=== PATIENT | male | born 1995 | race Caucasian/White ===

== ENCOUNTER 2017-11-07 16:55 | Emergency (ER) | payer BC, SELFPAY ==
[2017-11-07 16:56] VITALS: BP 116/75; PULSE 99; RESP 16; TEMP 36.9; O2SAT 99; BMI 17.0
--- NOTE | 2017-11-07 17:39 | ED.DCSUM_ITS ---
- ER Visit Summary Date of Service: 11/07/17 Chief Complaint: Rash History of Present Illness: The patient is a 22 M with a rash for about 5 days. It started when he had a campfire. He was carrying wood that was covered in leaves and thinks he may have been exposed to poison elenita. He has no fever or systemic symptoms. Exam: Normal vitals. Afebrile. Unremarkable exam except for some erythema and edema to his face diffusely. Airway intact. Nose unremarkable. He has some erythema and excoriations to his body and extremities. No sign of overlying warmth, drainage, bleeding, or pus. Mucous membranes normal. Test Results: None indicated Emergency Department Course and Treatment: Suspect this is a poison elenita rash and will put him on a prednisone taper. Treatment Plan: Above Disposition: Discharge Impression: 1. Poison elenita rash This note was generated with [employer] dictation software. It may contain incorrect words, spelling, and punctuation that were not noted in review of the chart prior to signing ED Disposition - Plan for ED Patient: Chief Complaint: Rash Referrals: Care Physician,No Primary [Primary Care Provider] -
--- NOTE | 2017-11-07 17:39 | ED.DEP ---
ED Disposition - Plan for ED Patient: Chief Complaint: Rash Instructions: ED Dermatitis Poison Cort[place] Prescriptions: Prednisone 10 mg PO DAILY #50 tab Additional Instructions: follow up with primary care or return if worse
[2017-11-07 17:49] VITALS: RESP 18
== END 2017-11-07 18:06 | disposition home or self-care (01) ==
PROVIDERS: Emergency Provider Emergency Medicine
DX: L23.7 Allergic contact dermatitis due to plants, except food (principal)
CPT/HCPCS: 99282

== ENCOUNTER 2018-02-12 23:19 | Emergency (ER) | payer BC, SELFPAY ==
[2018-02-12 23:20] VITALS: BP 125/75; PULSE 98; RESP 17; TEMP 37.3; O2SAT 94; BMI 16.9
--- NOTE | 2018-02-13 00:07 | ED.VISSUMM ---
- ER Visit Summary Date of Service: 02/13/18 Chief Complaint: Right groin pain and cough History of Present Illness: The patient is a 22 M no significant past medical history. Patient states she has had them and right groin pain for approximately a week. Denies any dysuria. No discharge. Pain is worse when he coughs or lifts heavy objects. He has never had any abdominal surgeries. He is also complaining of Nonproductive cough. No shortness of breath. No hemoptysis. Physical Examination: Well appearing young male. Vital signs are stable afebrile. No acute distress. H EENT exam unremarkable. Neck nontender no lymphadenopathy. Lungs clear to auscultation bilaterally. Heart regular rhythm no murmur. Abdomen soft nontender. External exam his testicles are nontender nonswollen. Normal positioning. No signs of torsion. No orchitis or epididymitis. Penis unremarkable. Circumcised. No discharge. No lesions. No inguinal lymphadenopathy. He does have a right small sliding inguinal hernia on the right. Left is unremarkable. The hernia on the right reduces spontaneously. There is no incarceration or strangulation. Moving all 4 extremities. Neurovascularly intact. Back nontender. Neurologic exam normal. Test Results: None Emergency Department Course and Treatment: Patient's cough is secondary to viral URI. His right groin pain is secondary to an inguinal hernia. Treatment Plan: Motrin for pain. Follow-up with a general surgeon. Disposition: Discharge Impression: Acute right groin inguinal hernia Viral URI This note was generated with [employer] dictation software. It may contain incorrect words, spelling, and punctuation that were not noted in review of the chart prior to signing ED Disposition - Plan for ED Patient: Chief Complaint: Male Pain/Injury Referrals: Care Physician,No Primary [Primary Care Provider] -
--- NOTE | 2018-02-13 00:11 | ED.DEP ---
ED Disposition - Plan for ED Patient: Disposition: Home or Assisted Living Chief Complaint: Male Pain/Injury Instructions: ED Hernia Inguinal, ED URI Viral Referrals: Frieda Arteaga MD [STAFF PHYSICIAN] - 1-2 Weeks Additional Instructions: Motrin for pain. Call and follow-up with Dr. Arteaga for further evaluation of your right groin hernia.
[2018-02-13 00:20] VITALS: BP 132/75; PULSE 88; RESP 17; O2SAT 95
== END 2018-02-13 00:21 | disposition home or self-care (01) ==
PROVIDERS: Emergency Provider Emergency Medicine
DX: K40.90 Unilateral inguinal hernia, without obstruction or gangrene, not specified as recurrent (principal); J06.9 Acute upper respiratory infection, unspecified; Z72.0 Tobacco use
CPT/HCPCS: 99282

== ENCOUNTER 2019-10-07 14:54 | Emergency (ER) | payer SELFPAY ==
[2019-10-07 14:54] VITALS: BP 121/77; PULSE 97; RESP 16; TEMP 36.9; O2SAT 98; BMI 17.8
[2019-10-07] MEDS: Ondansetron 4 MG/2 ML Vial IV (15:22)
[2019-10-07] MEDS: Ketorolac 30 MG/ML Syringe IV (15:22)
[2019-10-07] MEDS: 0.9% Normal Saline 1,000 ML 1000 ML IV (15:22)
[2019-10-07 15:31] LABS: Absolute Lymphocyte Count 1.24 X10^3/uL (0.83-4.51); Absolute Neutrophil Count 10.9 X10^3/uL (2.0-7.7); Basophil# 0.02 X10^3/uL; Basophil% 0.2 % (0-1); Eosinophil# 0.02 X10^3/uL; Eosinophils% 0.2 % (0-5); Hematocrit 47.2 % (40-54); Hemoglobin 16.5 g/dL (13.0-16.5); Lymphocyte # 1.24 X10^3/ul (4.0); Lymphocyte % 9.6 % (19-41); Mean Corpuscular Hgb 29.4 pg (27.0-32.0); Mean Corpuscular Volume 84.1 fL (80-94); Mean Platelet Vol. 11.2 fl (6.2-12.0); Monocyte% 4.7 % (0-10); NRBC Flagged by Analyzer 0 % (0-5); Neutrophil # 10.91 X10^3/uL (2.7-7.7); Neutrophil % 84.8 % (47-70); Platelet Count 213 K/mm3 (150-450); RBC Distribution Width CV 11.6 % (11.6-14.6); RBC Distribution Width SD 34.9 fl (35.1-43.9); Red Blood Count 5.61 M/mm3 (4.6-6.2); White Blood Count 12.9 K/mm3 (4.4-11.0)
--- NOTE | 2019-10-07 15:43 | ED.DCSUM_ITS ---
- ER Visit Summary Date of Service: 10/07/19 Chief Complaint: Abdominal pain History of Present Illness: The patient is a 24 M with no primary care physician. He reports that he has epigastric abdominal pain that began 2 days ago. Is intermittent cramping pain that is 8 out of 10 at worst and 2 out of 10 currently. Is worsened by eating. Is relieved by walking around. Reports has been nausea and vomited 3-4 times. No blood in his emesis. His last bowel was 2 days ago. Typically goes every other day. He denies any dysuria or frequency. Patient denies sick contacts. Has not been camping out of the country. No possible bad food exposure. Does not drink well water. No recent antibiotic u se. Patient has been self isolating. He lives at home with his and children. He has not been working. Physical Examination: Vitals: Stable. Afebrile. General: Well-nourished and well-developed. Head: Normocephalic atraumatic. Neck: Supple, no lymphadenopathy. No JVD. Nontender. Cardiovascular: Regular rate and rhythm. No murmurs. Respiratory: No respiratory distress. Clear to auscultation bilaterally. Abdominal: Soft, mild epigastric tenderness to palpation, nondistended, normal bowel sounds. No guarding, rebound, or peritoneal signs. Back: Nontender. Extremities: Nontender, no edema. Skin: Normal color, no rash. Neurologic: Alert and oriented ?3. Cranial nerves II through XII are intact. Normal strength and sensation. Psych: Normal affect. Test Results: CBC shows a white count of 12.9 with 85 segmented neutrophils and 10 lymphocytes. Chem-7 shows a potassium of 3.3, chloride of 108, glucose of 110, and BUN of 19. LFTs show total bili of 1.4. Lipase is 51. Emergency Department Course and Treatment: Patient had an IV placed. He is given a liter of normal saline. He is given Toradol and Zofran IV. He is resting comfortably. Treatment Plan: Patient will be discharged with Zofran and Bentyl. Instructed to follow-up with Dr. Hopson in 1 to 2 days if not improving. Return to the emergency department for any worsening symptoms. Disposition: To home in improved and stable condition. Impression: 1. Epigastric abdominal pain, acute. 2. Vomiting. This note was generated with [employer] dictation software. It may contain incorrect words, spelling, and punctuation that were not noted in review of the chart pr ior to signing ED Disposition - Plan for ED Patient: Instructions: ED Unknown Causes of Abdominal Pain Male Prescriptions: Dicyclomine HCl [Bentyl] 20 mg PO TIDAC #20 capsule Ondansetron [Zofran Odt] 4 mg PO Q8H PRN PRN #10 tablet PRN Reason: Nausea Referrals: Jodi Hopson DO [STAFF PHYSICIAN] - 1-2 Days if not improving
[2019-10-07 15:51] LABS: ALB/GLOB Ratio 1.4 RATIO (0.9-2.4); AST(SGOT) 25 U/L (15-37); Alanine Aminotransfer ALT/SGPT 39 U/L (16-61); Albumin, Serum 4.4 g/dL (3.2-5.0); Alkaline Phosphatase 99 U/L (45-117); Anion Gap 8 (5-15); BUN 19 mg/dL (7-18); BUN/Creat Ratio 19.4 RATIO (10-20); Calcium,Total 9.4 mg/dL (8.5-10.1); Chloride 108 mmol/L (98-107); Creatinine, Serum 0.98 mg/dL (0.70-1.30); EST Glomerular Filtration Rate 98 mL/min (>60); Est Glom Filt Rate - Afr Amer 119 mL/min (>60); Estimated Creatinine Clearance 83.55 ml/min; Globulin 3.1 g/dL (2.2-4.2); Glucose 110 mg/dL (74-106); Lipase 51 U/L (73-393); Potassium 3.3 mmol/L (3.5-5.1); Protein, Total 7.5 g/dL (6.4-8.2); Sodium Level 142 mmol/L (136-145)
== END 2019-10-07 16:32 | disposition home or self-care (01) ==
LOC: ED 15:43
PROVIDERS: Emergency Provider Emergency Medicine
DX: R10.13 Epigastric pain (principal); R11.2 Nausea with vomiting, unspecified
CPT/HCPCS: 80053; 83690; 85025; 96361; 96365; 96375; 99283; J7030; J2405